=== PATIENT | male | born 1990 | race Caucasian/White ===

== ENCOUNTER 2023-02-07 14:18 | Emergency (ER) | payer MEDICAID ==
[~2023-02-07] VITALS: Ht 165.1 cm; Wt 57.6 kg
[2023-02-07 14:52] VITALS: BP_SYST 103
--- NOTE | 2023-02-07 14:59 | NUR ---
Patient to ER bed 7 to gown for evaluation. Side rails up. Report given to ESTEBAN CRUZ.
--- NOTE | 2023-02-07 15:00 | NUR ---
ER at bedside examining patient.
[2023-02-07] MEDS ORDERED: KETOROLAC TROMETHAMINE 30 MG VIAL IVP ONE (15:15)
[2023-02-07] MEDS ORDERED: AMPICILLIN SODIUM/SULBACTAM NA 3 GM in NS 100 ML IV ONE ×2 (15:15→19:00)
--- NOTE | 2023-02-07 15:30 | NUR ---
# 20 gauge angiocath placed to right hand. Use of asceptic technique. Opsite placed over site. Blood return noted. Blood for lab drawn from site. Flushed with 10 cc of normal saline. No evidence of infiltration noted. Patient tolerated well.
[2023-02-07] MEDS ORDERED: AMPICILLIN SODIUM/SULBACTAM NA 3 GM VIAL ONE ×2 (15:32→19:38)
[2023-02-07 15:52] LABS: BASOPHILS % (AUTO) 0.2 % (0.0-2.0); EOSINOPHILS # (AUTO) 0.2 K/uL (0.0-0.4); EOSINOPHILS % (AUTO) 2.5 % (0.0-4.0); HEMOGLOBIN 13.9 g/dL (14.0-18.0); LYMPHOCYTES # (AUTO) 1.6 K/uL (1.0-5.5); LYMPHOCYTES % (AUTO) 26.3 % (20.5-51.5); MEAN CORPUSCULAR HEMOGLOBIN 33 pg (27-31); MEAN CORPUSCULAR HGB CONC 34 % (32-36); MEAN CORPUSCULAR VOLUME 96 fL (79.0-98.0); MONOCYTES # (AUTO) 0.7 K/uL (0.0-1.0); MONOCYTES % (AUTO) 11.5 % (1.7-9.3); NEUTROPHILS # (AUTO) 3.6 K/uL (1.8-7.7); NEUTROPHILS % (AUTO) 59.5 % (40.0-70.0); PLATELET COUNT (AUTO) 213 K/uL (130-430); RED BLOOD CELL COUNT(AUTO) 4.29 MIL/uL (4.2-6.2); RED CELL DISTRIBUTION WIDTH 13.6 % (9.0-15.0)
[2023-02-07 15:55] LABS: CALCIUM 8.9 mg/dL (8.4-11.0); CREATININE 1.06 mg/dL (0.55-1.30)
--- NOTE | 2023-02-07 15:56 | NUR ---
Sports Medicine Specialist bedside collecting blood specimen and cultures.
[2023-02-07 16:00] LABS: ALBUMIN 3.8 g/dL (3.4-4.8); TOTAL BILIRUBIN 0.4 mg/dL (0.0-1.0)
--- NOTE | 2023-02-07 16:47 | NUR ---
ABX completed with pt tolerance.
--- NOTE | 2023-02-07 17:13 | NUR ---
Called dietary for Reg. food tray.
--- NOTE | 2023-02-07 17:45 | NUR ---
ER at bedside examining patient.
--- NOTE | 2023-02-07 17:58 | NUR ---
Pt resting in bed with HOB up and eating reg diet tray.
--- NOTE | 2023-02-07 18:01 | NUR ---
MD discussed with pt to administer second dose of antibiotics this evening.
--- NOTE | 2023-02-07 18:53 | NUR ---
Pt ambulates to restroom with steady gait.
[2023-02-07] MEDS ORDERED: AUG875 PO (19:34)
[2023-02-07] MEDS ORDERED: IBUP-1971 PO (19:34)
[2023-02-07] MEDS ORDERED: DICL20GE TP (19:34)
[2023-02-07 20:07] VITALS: BP_SYST 118
--- NOTE | 2023-02-07 20:08 | NUR ---
Patient given written and verbal discharge instructions and verbalizes understanding. ER MD discussed with patient the results and treatment provided. Patient in stable condition. ID arm band removed. IV catheter removed intact and dressing applied, no active bleeding. Rx of AUGMENTIN, VOLTAREN, IBUPROFEN given. Patient educated on pain management and to follow up with PMD. Pain Scale 0/10. Opportunity for questions provided and answered. Medication side effect fact sheet provided.
== END 2023-02-07 20:07 | disposition home or self-care (01) ==
LOC: SED 14:18
DX: S60.461A Insect bite (nonvenomous) of left index finger, initial encounter (principal); L03.114 Cellulitis of left upper limb; Z79.899 Other long term (current) drug therapy; W57.XXXA Bitten or stung by nonvenomous insect and other nonvenomous arthropods, initial encounter; Y93.89 Activity, other specified; Y92.89 Other specified places as the place of occurrence of the external cause; Y99.8 Other external cause status
CPT/HCPCS: 99284; 96365; 96366; 96375; 80053; 85025; 87040; 36415; J0295; J1885

== ENCOUNTER 2023-02-22 09:10 | Emergency (ER) | payer MEDICAID ==
[~2023-02-22] VITALS: Ht 167.6 cm; Wt 74.8 kg
[~2023-02-22 09:10] MED LIST: AUG875 PO; DICL20GE TP; IBUP-1971 PO
[2023-02-22 10:08] VITALS: BP_SYST 12
[2023-02-22 10:08] LABS: BASOPHILS % (AUTO) 0.2 % (0.0-2.0); EOSINOPHILS # (AUTO) 0.2 K/uL (0.0-0.4); EOSINOPHILS % (AUTO) 3.2 % (0.0-4.0); HEMATOCRIT 41.6 % (36-54); HEMOGLOBIN 14.1 g/dL (14.0-18.0); LYMPHOCYTES # (AUTO) 1.8 K/uL (1.0-5.5); LYMPHOCYTES % (AUTO) 35.7 % (20.5-51.5); MEAN CORPUSCULAR HEMOGLOBIN 32 pg (27-31); MEAN CORPUSCULAR HGB CONC 34 % (32-36); MEAN CORPUSCULAR VOLUME 96 fL (79.0-98.0); MONOCYTES # (AUTO) 0.5 K/uL (0.0-1.0); MONOCYTES % (AUTO) 8.9 % (1.7-9.3); NEUTROPHILS # (AUTO) 2.7 K/uL (1.8-7.7); PLATELET COUNT (AUTO) 259 K/uL (130-430); RED BLOOD CELL COUNT(AUTO) 4.34 MIL/uL (4.2-6.2); RED CELL DISTRIBUTION WIDTH 13.8 % (9.0-15.0); WHITE BLOOD COUNT (AUTO) 5.2 K/uL (4.8-10.8)
[2023-02-22 10:21] LABS: ANION GAP 8 (5-15); CALCIUM 8.5 mg/dL (8.4-11.0); CHLORIDE 107 mmol/L (98-107); GFR AFRICAN AMERICAN 125 mL/min (>90); GLUCOSE 99 mg/dL (70-99); UREA NITROGEN, BLOOD 16 mg/dL (8-21)
[2023-02-22 10:25] LABS: ALANINE AMINOTRANSFERASE 22 U/L (12-78); ALBUMIN 3.8 g/dL (3.4-4.8); AMYLASE 108 U/L (0-100); ASPARTATE AMINOTRANSFERASE 20 U/L (10-37); LIPASE 73 U/L (73-393); TOTAL BILIRUBIN 0.4 mg/dL (0.0-1.0)
[2023-02-22 10:38] LABS: BILIRUBIN,URINE NEGATIVE (NEGATIVE); BLOOD, URINE NEGATIVE (NEGATIVE); CLARITY/URINE CLEAR (CLEAR); COLOR,URINE YELLOW (YELLOW); GLUCOSE,URINE NEGATIVE (NEGATIVE); KETONES,URINE NEGATIVE (NEGATIVE); LEUKOCYTE ESTERASE ,URINE NEGATIVE (NEGATIVE); NITRITE, URINE NEGATIVE (NEGATIVE); PROTEIN URINE NEGATIVE (NEGATIVE); UROBILINOGEN,URINE 0.2 (0.2-1.0)
[2023-02-22 10:44] LABS: C-REACTIVE PROTEIN QUANT < 0.2 mg/dL (0-0.5)
== END 2023-02-22 11:22 | disposition home or self-care (01) ==
LOC: SED 09:10
DX: R31.9 Hematuria, unspecified (principal); R30.0 Dysuria; Z79.899 Other long term (current) drug therapy
CPT/HCPCS: 36415; 76376; 80053; 81003; 82150; 83690; 85025; 85610-TC; 85730-TC; 86140; 99284